=== PATIENT | female | born 1980 | race Caucasian/White ===

== ENCOUNTER 2017-02-15 14:49 | Emergency (ER) | payer MEDICARE, MEDICAID ==
[2017-02-15] MEDS ORDERED: CALCIUM GLUCONATE 1000 MG/10 ML INJ IV ONE ×5 (14:54→16:09)
[2017-02-15] MEDS ORDERED: INSULIN REG, HUMAN 100 UNIT/ML 3 ML VIAL (PYX) IV ONE (15:03)
[2017-02-15] MEDS ORDERED: ALBUTEROL SULFATE 0.083% NEB 2.5 MG/3 ML AMPUL NEB ONE (15:03)
[2017-02-15] MEDS ORDERED: SODIUM BICARBONATE 8.4% INJ 50 MEQ/50 ML DISP.SYRIN IV ONE (15:03)
[2017-02-15 15:13] LABS: VENOUS BLOOD HCO3 18.9 mmol/L (20-32); VENOUS BLOOD PCO2 62.4 mmHg (35-63)
[2017-02-15 15:15] LABS: VENOUS BLOOD PH 7.1 (7.30-7.42)
[2017-02-15 15:17] LABS: PROTHROMBIN TIME 19.1 SEC (11.4-15.4)
[2017-02-15 15:18] LABS: PARTIAL THROMBOPLASTIN TIME 46.8 SEC (23.5-35.8)
--- NOTE | 2017-02-15 15:18 | ER Document Report ---
ED General - General Chief Complaint: Arrhythmia Stated Complaint: HEART RATE CONCERN Time Seen by Provider: 02/15/17 15:01 Notes: The patient is a 36-year-old female, past medical history ESRD ([facility]), MRSA pneumonia, colectomy, gastroparesis, presents by EMS after she was found to be blue and with decreased responsiveness at [facility]. Patient was found to be in a junctional bradycardia with a heart rate of 30 and blood pressure of 70/40. Patient is unable to say when her last dialysis was. TRAVEL OUTSIDE OF THE [place] IN LAST 30 DAYS: No - Related Data Allergies/Adverse Reactions: clindamycin [Clindamycin] Allergy (Severe, Verified 06/04/15 04:18) rash vancomycin [Vancomycin] Allergy (Severe, Verified 06/04/15 04:18) rash, fever, swelling, after 3 weeks of in home IV treatment Cephalosporins Allergy (Intermediate, Verified 06/04/15 04:18) bullous rash sulfamethoxazole [From Bactrim DS] Allergy (Intermediate, Verified 06/04/15 04: 18) Hives trimethoprim [From Bactrim DS] Allergy (Intermediate, Verified 06/04/15 04:18) Hives Past Medical History - General Information source: Patient Cannot obtain history due to: Unstable vital signs - Social History Smoking Status: Unknown if Ever Smoked Family History: CAD, DM, Other - Past Medical History Cardiac Medical History: Reports: Hx Heart Attack - [place] 2014, Hx Hypertension, Hx Peripheral Vascular Disease Denies: Hx Coronary Artery Disease Pulmonary Medical History: Reports: Hx Asthma, Hx Pneumonia Denies: Hx Bronchitis, Hx COPD Neurological Medical History: Reports: Hx Seizures. Denies: Hx Cerebrovascular Accident Endocrine Medical History: Reports: Hx Diabetes Mellitus Type 1, Hx Diabetes Mellitus Type 2 Renal/ Medical History: Reports: Hx End Stage Renal Disease, Hx Hemodialysis - Current, Hx Peritoneal Dialysis - Previous Malignancy Medical History: Denies: Hx Breast Cancer, Hx Cervical Cancer, Hx Lung Cancer, Hx Ovarian Cancer GI Medical History: Reports: Hx Gastroesophageal Reflux Disease. Denies: Hx Crohn's Disease, Hx Hiatal Hernia, Hx Irritable Bowel, Hx Liver Failure, Hx Ulcer Musculoskeltal Medical History: Denies Hx Arthritis, Denies Hx Fibromyalgia, Denies Hx Muscular Dystrophy, Reports Hx Musculoskeletal Deformity Skin Medical History: Reports Hx MRSA Psychiatric Medical History: Denies: Hx Depression Traumatic Medical History: Denies: Hx Fractures Past Surgical History: Reports: Hx Abdominal Surgery - peritoneal dialysis catheter, Hx Section, Hx Gynecologic Surgery - BTL, left ovary removed , D&C, Hx Orthopedic Surgery - Right BKA, Left AKA, Hx Tubal Ligation. Denies: Hx Appendectomy, Hx Bowel Surgery, Hx Cholecystectomy, Hx Colostomy, Hx Coronary Artery Bypass Graft, Hx Gastric Bypass Surgery, Hx Herniorrhaphy, Hx Hysterectomy, Hx Mastectomy, Hx Pacemaker, Hx Tonsillectomy - Immunizations Immunizations up to date: No Hx Diphtheria, Pertussis, Tetanus Vaccination: No Hx Pneumococcal Vaccination: 07/09/11 Review of Systems - Review of Systems -: Yes ROS unobtainable due to patient's medical condition Physical Exam - Vital signs Vitals: Pulse Resp BP Pulse Ox 34 L 14 70/56 L 91 L 02/15/17 15:00 02/15/17 15:00 02/15/17 15:00 02/15/17 15:00 - Notes Notes: PHYSICAL EXAMINATION: GENERAL: Decreased responsiveness. Slow to respond to voice. Ill-appearing. HEAD: Atraumatic, normocephalic. EYES: Pupils equal round and reactive to light, extraocular movements intact, sclera anicteric, conjunctiva are normal. ENT: nares patent, oropharynx clear without exudates. Moist mucous membranes. NECK: Normal range of motion, supple without lymphadenopathy LUNGS: Breath sounds clear to auscultation bilaterally and equal. No wheezes rales or rhonchi. CHEST: Dialysis catheter and central line in place over right upper chest wall. HEART: Bradycardia. ABDOMEN: Soft, Colostomy bag with brown stool. EXTREMITIES: B/L AKA. NEUROLOGICAL: Slow to respond to voice. Awake. No focal neuro deficits. SKIN: Cyanotic. Course - Re-evaluation Re-evalutation: Patient seen immediately on arrival. With history of ESRD, junctional bradycardia leading to hypotension, empiric treatment for height hyperkalemia was provided with increase of her heart rate from HR junctional bradycardia with rate of 30 to sinus rhythm with HR of 66 and improvement of her BP from 70/ 40 to 130/81. Pt began to become hypoxic down to 50% on her non-rebreather mask with worsening mental status. Decision was made to intubate patient. Due to presence of trach scar, multiple difficult airway were set up prior to intubation. Patient is also hypothermic, with a leukocytosis and possible left lower lobe pneumonia. Broad-spectrum antibiotics started through her PICC line and 30 cc/kg provided to patient when she is intubated due to lactate is 6.9 and hypotension. Levophed started through her central line. Pt also with elevated troponin, but no STEMI. Unable to tell if she has chest pain. Suspect this is a component of her septic shock leading to endorgan damage. Heparin started due to slightly decreased INR from her Coumadin level. 02/15/17 16:32 Spoke to her Internal Control Specialist, Dr. Castro, about need for emergent dialysis. Unable to obtain dialysis after 3 PM at [facility] and he is recommending transfer. He is also recommending 45 mg of Kayexalate to help excrete the potassium. 02/15/17 16:50 Spoke to [facility] and awaiting callback from microbiology instructor. 02/15/17 16:[address] Denney (Bear Keeper at [facility]) and he has accepted patient. 02/15/17 20:00 Transport in ED. Pt remains on propofol, heparin and levophed drips. Reassessed patient. - Vital Signs Vital signs: Temp Pulse Resp BP Pulse Ox 94.5 F L 34 L 10 L 105/73 100 02/15/17 15:51 02/15/17 15:00 02/15/17 19:54 02/15/17 19:54 02/15/17 19:54 - Laboratory Result Diagrams: 02/15/17 15:47 02/15/17 14:55 Laboratory results interpreted by me: 02/15/17 02/15/17 02/15/17 14:55 14:55 14:55 WBC Hgb Hct MCH MCHC RDW Seg Neutrophils % Lymphocytes % Absolute Neutrophils PT 19.1 H APTT 46.8 H Carbonic Acid ABG pH ABG pCO2 ABG pO2 ABG HCO3 ABG Total CO2 ABG O2 Saturation VBG pH VBG HCO3 Sodium 135.7 L Potassium 6.9 H* Chloride 95 L Carbon Dioxide 19 L Anion Gap 22 H BUN 51 H Creatinine 3.50 H Est GFR ( Amer) 18 L Est GFR (Non-Af Amer) 15 L Glucose 173 H Lactic Acid Calcium 11.4 H Direct Bilirubin 0.7 H AST 68 H Alkaline Phosphatase 212 H NT-Pro-B Natriuret Pep 36598 H 02/15/17 02/15/17 02/15/17 14:55 14:55 15:47 WBC 12.2 H Hgb 9.6 L Hct 34.6 L MCH 23.5 L MCHC 27.8 L RDW 23.4 H Seg Neutrophils % 82.0 H Lymphocytes % 10.1 L Absolute Neutrophils 10.0 H PT APTT Carbonic Acid ABG pH ABG pCO2 ABG pO2 ABG HCO3 ABG Total CO2 ABG O2 Saturation VBG pH 7.10 L* VBG HCO3 18.9 L Sodium Potassium Chloride Carbon Dioxide Anion Gap BUN Creatinine Est GFR ( Amer) Est GFR (Non-Af Amer) Glucose Lactic Acid 6.9 H Calcium Direct Bilirubin AST Alkaline Phosphatase NT-Pro-B Natriuret Pep 02/15/17 02/15/17 18:45 18:49 WBC Hgb Hct MCH MCHC RDW Seg Neutrophils % Lymphocytes % Absolute Neutrophils PT APTT Carbonic Acid 1.41 H ABG pH 7.19 L* ABG pCO2 46.7 H ABG pO2 61.9 L ABG HCO3 17.5 L ABG Total CO2 19.0 L ABG O2 Saturation 86.0 L VBG pH VBG HCO3 Sodium Potassium Chloride Carbon Dioxide Anion Gap BUN Creatinine Est GFR ( Amer) Est GFR (Non-Af Amer) Glucose Lactic Acid 6.3 H Calcium Direct Bilirubin AST Alkaline Phosphatase NT-Pro-B Natriuret Pep - Diagnostic Test Radiology reviewed: Image reviewed, Reports reviewed Radiology results interpreted by me: CXR: possible left lower lobe pneumonia - EKG Interpretation by Me Rate: Bradycardia Rhythm: Other - Junctional Procedures - Intubation Orotracheal Time of Intubation: 16:30 Airway evaluation: Large tongue, Obese Intubation method: Orotracheal Blade type: Pk Blade size: 4 Equipment used: Glidescope ETT size: 7.5 ETT secured at: Teeth ETT secured at (cm): 24 Breath Sounds after Intubation: Equal End tidal CO2 confirmed: Yes Ventilator settings: SIMV Tidal volume: 450 FiO2: 100 Respirations: 12 PEEP: 10 Post Intubation Xray: Yes Intubation Complications: No complications Critical Care Note - Critical Care Note Total time excluding time spent on procedures (mins): 55 Discharge - Discharge Clinical Impression: Hyperkalemia, Septic shock, Elevated troponin Respiratory failure with hypoxia Qualifiers: Chronicity: acute Qualified Code(s): J96.01 - Acute respiratory failure with hypoxia Pneumonia Qualifiers: Pneumonia type: due to unspecified organism Laterality: left Lung location: lower lobe of lung Qualified Code(s): J18.1 - Lobar pneumonia, unspecified organism Condition: Critical Disposition: [facility] Referrals: ALIYAH MCCLURE MD [Primary Care Provider] - Follow up as needed
--- NOTE | 2017-02-15 15:27 | RADIOLOGY REPORT (SQ) ---
EXAM DESCRIPTION: CHEST SINGLE VIEW COMPLETED DATE/TIME: 02/15/2017 3:16 pm REASON FOR STUDY: SOB COMPARISON: 02/19/2016 EXAM PARAMETERS: NUMBER OF VIEWS: One view. TECHNIQUE: Single frontal radiographic view of the chest acquired. RADIATION DOSE: NA LIMITATIONS: None. FINDINGS: LUNGS AND PLEURA: Low lung volumes. Ill-defined retrocardiac opacification. Small right pleural effusion versus chronic pleural thickening. MEDIASTINUM AND HILAR STRUCTURES: No masses. Contour normal. HEART AND VASCULAR STRUCTURES: Heart size is borderline but accentuated by low lung volumes. BONES: No acute findings. HARDWARE: Dual-lumen catheter in place on the right. OTHER: No other significant finding. IMPRESSION: Cannot exclude left lower lobe pneumonia. Chronic pleural changes in the right base. B orderline heart size as described. TECHNICAL DOCUMENTATION: JOB ID: [id number]
[2017-02-15 15:35] LABS: ALANINE AMINOTRANSFERASE 37 U/L (9-52); ALBUMIN 3.9 g/dL (3.5-5.0); ALKALINE PHOSPHATASE 212 U/L (38-126); ASPARTATE AMINO TRANSFERASE 68 U/L (14-36); BILIRUBIN,DIRECT 0.7 mg/dL (0.0-0.4); BILIRUBIN,TOTAL 0.7 mg/dL (0.2-1.3); BLOOD UREA NITROGEN 51 mg/dL (7-20); CALCIUM 11.4 mg/dL (8.4-10.2); CREATINE KINASE 49 U/L (30-135); GLUCOSE 173 mg/dL (75-110); LIPASE 42.5 U/L (23-300); TOTAL PROTEIN 7.4 g/dL (6.3-8.2)
[2017-02-15] MEDS ORDERED: NORMAL SALINE 1000 ML 1,000 ML IV ONE (15:35)
[2017-02-15] MEDS ORDERED: LINEZOLID 300 ML IV ONE (15:35)
[2017-02-15] MEDS ORDERED: PIPERACILLIN/TAZOBACTAM 3.375 GM VIAL IV ONE (15:36)
[2017-02-15 15:42] LABS: CARBON DIOXIDE 19 mmol/L (22-30); CHLORIDE 95 mmol/L (98-107); SODIUM 135.7 mmol/L (137-145)
[2017-02-15 15:44] LABS: ANION GAP 22 (5-19)
[2017-02-15 15:45] LABS: POTASSIUM 6.9 mmol/L (3.6-5.0)
[2017-02-15 16:03] LABS: ABSOLUTE BASOPHILS # (AUTO) 0.1 10^3/uL (0.0-0.2); ABSOLUTE EOSINOPHILS # (AUTO) 0.1 10^3/uL (0.0-0.6); ABSOLUTE LYMPHOCYTES (AUTO) 1.2 10^3/uL (0.5-4.7); ABSOLUTE MONOCYTES (AUTO) 0.8 10^3/uL (0.1-1.4); BASOPHILS % (AUTO) 0.5 % (0-2); EOSINOPHILS % (AUTO) 0.6 % (0-6); HEMATOCRIT 34.6 % (36.0-47.0); HEMOGLOBIN 9.6 g/dL (12.0-15.5); LYMPHOCYTES % (AUTO) 10.1 % (13-45); MEAN CORPUSCULAR HEMOGLOBIN 23.5 pg (27.0-33.4); MEAN CORPUSCULAR HGB CONC 27.8 g/dL (32.0-36.0); MEAN CORPUSCULAR VOLUME 85 fl (80-97); MONOCYTES % (AUTO) 6.8 % (3-13); RED BLOOD COUNT 4.09 10^6/uL (3.72-5.28); RED CELL DISTRIBUTION WIDTH 23.4 % (11.5-14.0); WHITE BLOOD COUNT 12.2 10^3/uL (4.0-10.5)
[2017-02-15] MEDS ORDERED: NOREPINEPHRINE BITARTRATE INJ/PF 4 MG/4 ML SDV IV ONE (16:03)
[2017-02-15] MEDS ORDERED: ETOMIDATE INJ/PF 20 MG/10 ML SDV IV ONE ×3 (16:04→16:43)
[2017-02-15 16:09] LABS: TROPONIN I 3.74 ng/mL
[2017-02-15 16:19] LABS: HGB HCT DIFFERENCE -5.8
[2017-02-15] MEDS ORDERED: SODIUM POLYSTYRENE SULFONATE 15 GM/60 ML PO ONE (16:30)
[2017-02-15] MEDS ORDERED: NORMAL SALINE 1000 ML 1,000 ML IV PRN (16:41)
[2017-02-15] MEDS ORDERED: DEXTROSE 5%-WATER 250 ML with NOREPINEPHRINE BITARTRATE 4 MG IV PRN ×2 (16:42)
[2017-02-15] MEDS ORDERED: FENTANYL CITRATE INJ/PF 100 MCG/2 ML AMPUL IV ONE (16:43)
--- NOTE | 2017-02-15 16:43 | RADIOLOGY REPORT (SQ) ---
EXAM DESCRIPTION: CHEST SINGLE VIEW COMPLETED DATE/TIME: 02/15/2017 4:34 pm REASON FOR STUDY: ETT PLACEMENT COMPARISON: 02/15/2017 EXAM PARAMETERS: NUMBER OF VIEWS: One view. TECHNIQUE: Single frontal radiographic view of the chest acquired. RADIATION DOSE: NA LIMITATIONS: None. FINDINGS: LUNGS AND PLEURA: Moderate bilateral pleural effusions with associated airspace disease. Upper lungs are clear. No pneumothorax. MEDIASTINUM AND HILAR STRUCTURES: No masses. Contour normal. HEART AND VASCULAR STRUCTURES: Heart stable in size. Normal vasculature. BONES: No acute findings. HARDWARE: Interval placement endotracheal tube terminating 2 cm above the kalyn. Stable position ri ght PermCath. OTHER: No other significant finding. IMPRESSION: INTERVAL PLACEMENT OF ENDOTRACHEAL TUBE TERMINATING APPROXIMATELY 2 CM ABOVE THE KALYN. OTHERWISE STABLE APPEARANCE OF THE CHEST. TECHNICAL DOCUMENTATION: JOB ID: [id number]
[2017-02-15] MEDS ORDERED: HEPARIN SOD (PORCINE) 1,000 UNIT/ML 10 ML VIAL IV ONE (16:45)
--- NOTE | 2017-02-15 18:19 | EKG REPORT ---
SEVERITY:- ABNORMAL ECG - SINUS OR ECTOPIC ATRIAL RHYTHM RIGHT BUNDLE BRANCH BLOCK : Confirmed by: Jas Ace MD 15-Feb-2017 18:18:21
[2017-02-15] MEDS ORDERED: ROCURONIUM BROMIDE INJ 50 MG/5 ML VIAL IV ONE (18:34)
[2017-02-15 19:05] LABS: ARTERIAL BLOOD BASE EXCESS -10.4 mmol/L
[2017-02-15] MEDS ORDERED: PROPOFOL 100 ML IV PRN (19:44)
[2017-02-15 19:57] VITALS: BP 105/73
== END 2017-02-15 20:15 | disposition short-term general hospital (02) ==
LOC: ER 14:49
PROC: 0BH17EZ Insertion of Endotracheal Airway into Trachea, Via Natural or Artificial Opening (ICD-10-PCS; principal; 2017-02-15)
DX: A41.9 Sepsis, unspecified organism (principal); R65.21 Severe sepsis with septic shock; J96.01 Acute respiratory failure with hypoxia; J18.1 Lobar pneumonia, unspecified organism; R74.8 Abnormal levels of other serum enzymes; E87.5 Hyperkalemia; E11.22 Type 2 diabetes mellitus with diabetic chronic kidney disease; I12.0 Hypertensive chronic kidney disease with stage 5 chronic kidney disease or end stage renal disease; N18.6 End stage renal disease; Z99.2 Dependence on renal dialysis; I25.2 Old myocardial infarction; J45.909 Unspecified asthma, uncomplicated; Z86.14 Personal history of Methicillin resistant Staphylococcus aureus infection; Z88.1 Allergy status to other antibiotic agents; Z85.3 Personal history of malignant neoplasm of breast; Z85.43 Personal history of malignant neoplasm of ovary; Z85.41 Personal history of malignant neoplasm of cervix uteri; Z85.118 Personal history of other malignant neoplasm of bronchus and lung; Z89.511 Acquired absence of right leg below knee; Z89.612 Acquired absence of left leg above knee; Z93.3 Colostomy status
CPT/HCPCS: 93005; 96376; 94640; 99291; 96375; 96365; 96367; 36415; 82803 ×2; 82550; 83690; 85025; 85610; 85730; 80053; 84484; 83605; 83880; 71010; 93010; 31500; J0610; J2020; J3010; J2704; J3490 ×2; J7030; A9270; J2543

== ENCOUNTER 2017-03-02 04:59 | Emergency (ER) | payer MEDICARE, MEDICAID ==
[2017-03-02] MEDS ORDERED: LORAZEPAM INJ 2 MG/1 ML VIAL IV ONE ×2 (05:09→06:01)
--- NOTE | 2017-03-02 05:13 | ER Document Report ---
Doctor's Note Notes: 03/02/17 05:12 I performed a quick triage evaluation the patient. Patient is a 36-year-old female who presents with complaint of difficulty breathing. She says she feels very anxious and wants her Xanax. [facility]. She has a very extensive medical history including diabetes requiring bilateral lower extremity amputation, history of a collapsed lung on the left, history of Magaña-Tyler syndrome, history of end-stage renal disease requiring dialysis. Patient says she was at [facility] for approximately a year and then was discharged to the current jail. She was seen here approximately 2 weeks ago and at that time she was severely hypoxic and was found blue facility. She was intubated here and then transferred to [facility] due to respiratory distress and hypoxemia. Patient says that she feels very anxious. Paramedics said that her lung motley were clear upon their arrival. Patient said she started feeling short of breath again today. On exam patient is very anxious. She has very good bilateral breath sounds. She has no rales. She has no wheezing. No rhonchi. Her oxygen saturation is hard to keep a good plaque. When she has a good plethora oxygen saturation is approximately 96% on 4 L. She normally wears 2-3 L at the jail. I will order baseline blood work. I will give her a dose of Ativan. I will order a portable chest x-ray. 03/02/17 05:15 03/02/17 05:17
[2017-03-02] MEDS ORDERED: PROMETHAZINE HCL INJ 25 MG/1 ML VIAL IM ONE (05:24)
[2017-03-02 05:45] LABS: VENOUS BLOOD BASE EXCESS 2.1 mmol/L; VENOUS BLOOD HCO3 26.5 mmol/L (20-32); VENOUS BLOOD PCO2 40.3 mmHg (35-63); VENOUS BLOOD PH 7.44 (7.30-7.42)
--- NOTE | 2017-03-02 05:56 | ER Document Report ---
ED General - General Chief Complaint: Shortness Of Breath Stated Complaint: DIFFICULTY BREATHING Time Seen by Provider: 03/02/17 05:09 Mode of Arrival: Medic Information source: Patient TRAVEL OUTSIDE OF THE [place] IN LAST 30 DAYS: No - HPI Patient complains to provider of: SOB Onset: This morning Onset/Duration: Gradual Associated symptoms: Other - Anxiety Similar symptoms previously: Yes Recently seen / treated by doctor: Yes Notes: Patient initially seen by overnight ED physician to begin workup. I will assume care at 6 AM. - Related Data Allergies/Adverse Reactions: clindamycin [Clindamycin] Allergy (Severe, Verified 03/02/17 05:41) rash vancomycin [Vancomycin] Allergy (Severe, Verified 03/02/17 05:41) rash, fever, swelling, after 3 weeks of in home IV treatment Cephalosporins Allergy (Intermediate, Verified 03/02/17 05:41) bullous rash sulfamethoxazole [From Bactrim DS] Allergy (Intermediate, Verified 03/02/17 05: 41) Hives trimethoprim [From Bactrim DS] Allergy (Intermediate, Verified 03/02/17 05:41) Hives Past Medical History - Social History Smoking Status: Never Smoker Family History: CAD, DM, Other - Past Medical History Cardiac Medical History: Reports: Hx Heart Attack - [place] 2014, Hx Hypertension, Hx Peripheral Vascular Disease Denies: Hx Coronary Artery Disease Pulmonary Medical History: Reports: Hx Asthma, Hx Pneumonia Denies: Hx Bronchitis, Hx COPD Neurological Medical History: Reports: Hx Seizures. Denies: Hx Cerebrovascular Accident Endocrine Medical History: Reports: Hx Diabetes Mellitus Type 1, Hx Diabetes Mellitus Type 2 Renal/ Medical History: Reports: Hx End Stage Renal Disease, Hx Hemodialysis - Current, Hx Peritoneal Dialysis - Previous Malignancy Medical History: Denies: Hx Breast Cancer, Hx Cervical Cancer, Hx Lung Cancer, Hx Ovarian Cancer GI Medical History: Reports: Hx Gastroesophageal Reflux Disease. Denies: Hx Crohn's Disease, Hx Hiatal Hernia, Hx Irritable Bowel, Hx Liver Failure, Hx Pancreatitis, Hx Ulcer Musculoskeltal Medical History: Denies Hx Arthritis, Denies Hx Fibromyalgia, Denies Hx Muscular Dystrophy, Reports Hx Musculoskeletal Deformity Skin Medical History: Reports Hx MRSA Psychiatric Medical History: Denies: Hx Depression Traumatic Medical History: Denies: Hx Fractures Past Surgical History: Reports: Hx Abdominal Surgery - peritoneal dialysis catheter, Hx Section, Hx Gynecologic Surgery - BTL, left ovary removed , D&C, Hx Orthopedic Surgery - Right BKA, Left AKA, Hx Tubal Ligation. Denies: Hx Appendectomy, Hx Bowel Surgery, Hx Cholecystectomy, Hx Colostomy, Hx Coronary Artery Bypass Graft, Hx Gastric Bypass Surgery, Hx Herniorrhaphy, Hx Hysterectomy, Hx Mastectomy, Hx Pacemaker, Hx Tonsillectomy - Immunizations Immunizations up to date: No Hx Diphtheria, Pertussis, Tetanus Vaccination: No Hx Pneumococcal Vaccination: 07/09/11 Physical Exam - Vital signs Vitals: Resp Pulse Ox 12 86 L 03/02/17 05:07 03/02/17 05:07 Course - Re-evaluation Re-evalutation: 03/02/17 06:00 pt is requesting more ativan - sts is doesnt work and she would prefer xanax. Also requesting benadryl because she is itching. 03/02/17 06:18 pt is breathing comfortably. Hyperkalemia noted - it is asymptomatic. She is scheduled for dialysis at 11am. CXR unremarkable. 03/02/17 06:36 Emergency department workup is unremarkable with the exception of a mild hyperkalemia. Patient is otherwise asymptomatic. Chest x-ray is at baseline. Her primary concern was not having Xanax for the last 24 hours because the alf is out of it. Patient will be discharged back to the alf for her scheduled at 11 AM dialysis. - Vital Signs Vital signs: Temp Pulse Resp BP Pulse Ox 32 H 140/117 H 97 03/02/17 06:17 03/02/17 06:17 03/02/17 06:17 - Laboratory Result Diagrams: 03/02/17 05:21 03/02/17 05:21 Laboratory results interpreted by me: 03/02/17 03/02/17 03/02/17 05:21 05:21 05:21 WBC 10.9 H Hgb 10.8 L Hct 34.4 L MCH 25.7 L MCHC 31.3 L RDW 24.3 H Plt Count 504 H Lymphocytes % 10.9 L VBG pH 7.44 H Sodium 135.1 L Potassium 6.7 H* Chloride 94 L BUN 44 H Creatinine 3.03 H Est GFR ( Amer) 21 L Est GFR (Non-Af Amer) 17 L Glucose 139 H Calcium 10.8 H Direct Bilirubin 0.9 H Alkaline Phosphatase 185 H - EKG Interpretation by Me EKG shows normal: Sinus rhythm Rate: Tachycardia - 104 Rhythm: NSR Additional EKG results interpreted by me: 03/02/17 06:18 no evidence of hyperkalemia on EKG Discharge - Discharge Clinical Impression: Hyperkalemia, End-stage renal disease Condition: Good Disposition: SNF-Other Instructions: Kidney Failure ([facility]) Additional Instructions: Follow-up with your scheduled dialysis at 11 AM today. Return to the emergency department if worse or for any other problems. Prescriptions: Alprazolam [Xanax Xr 1 mg Tablet Extended Release] 1 tab PO TID PRN #10 tab.sr PRN Reason: Anxiety Referrals: ALIYAH MCCLURE MD [Primary Care Provider] - Follow up as needed
[2017-03-02 05:59] LABS: ALANINE AMINOTRANSFERASE 27 U/L (9-52); ALKALINE PHOSPHATASE 185 U/L (38-126); ANION GAP 16 (5-19); ASPARTATE AMINO TRANSFERASE 21 U/L (14-36); BILIRUBIN,DIRECT 0.9 mg/dL (0.0-0.4); BILIRUBIN,TOTAL 0.9 mg/dL (0.2-1.3); BLOOD UREA NITROGEN 44 mg/dL (7-20); CALCIUM 10.8 mg/dL (8.4-10.2); CARBON DIOXIDE 25 mmol/L (22-30); CHLORIDE 94 mmol/L (98-107); CREATININE RESULT 3.03 mg/dL (0.52-1.25); GLUCOSE 139 mg/dL (75-110); SODIUM 135.1 mmol/L (137-145); TOTAL PROTEIN 7.6 g/dL (6.3-8.2)
[2017-03-02] MEDS ORDERED: DIPHENHYDRAMINE HCL 50 MG/ML VIAL IV ONE (06:01)
[2017-03-02 06:10] LABS: ABSOLUTE BASOPHILS # (AUTO) 0.1 10^3/uL (0.0-0.2); ABSOLUTE EOSINOPHILS # (AUTO) 0.4 10^3/uL (0.0-0.6); ABSOLUTE LYMPHOCYTES (AUTO) 1.2 10^3/uL (0.5-4.7); ABSOLUTE MONOCYTES (AUTO) 0.9 10^3/uL (0.1-1.4); ABSOLUTE NEUT (AUTO) 8.2 10^3/uL (1.7-8.2); BASOPHILS % (AUTO) 1.3 % (0-2); HEMATOCRIT 34.4 % (36.0-47.0); HEMOGLOBIN 10.8 g/dL (12.0-15.5); LYMPHOCYTES % (AUTO) 10.9 % (13-45); MEAN CORPUSCULAR HEMOGLOBIN 25.7 pg (27.0-33.4); MEAN CORPUSCULAR HGB CONC 31.3 g/dL (32.0-36.0); MEAN CORPUSCULAR VOLUME 82 fl (80-97); MONOCYTES % (AUTO) 8.3 % (3-13); RED BLOOD COUNT 4.19 10^6/uL (3.72-5.28); RED CELL DISTRIBUTION WIDTH 24.3 % (11.5-14.0); SEGMENTED NEUTROPHILS % (AUTO) 75.5 % (42-78); WHITE BLOOD COUNT 10.9 10^3/uL (4.0-10.5)
[2017-03-02 06:11] LABS: POTASSIUM 6.7 mmol/L (3.6-5.0)
[2017-03-02] MEDS ORDERED: SODIUM POLYSTYRENE SULFONATE 15 GM/60 ML PO ONE (06:17)
--- NOTE | 2017-03-02 06:28 | RADIOLOGY REPORT (SQ) ---
EXAM DESCRIPTION: CHEST SINGLE VIEW COMPLETED DATE/TIME: 03/02/2017 5:44 am REASON FOR STUDY: dyspnea COMPARISON: 02/15/2017. EXAM PARAMETERS: NUMBER OF VIEWS: One view. TECHNIQUE: Single frontal radiographic view of the chest acquired. RADIATION DOSE: NA LIMITATIONS: None. FINDINGS: LUNGS AND PLEURA: Moderate opacity -effusion of the right lung base. Small streakiness -e ffusion of the left lung base. Moderate-small lung volumes. MEDIASTINUM AND HILAR STRUCTURES: No masses. Contour normal. HEART AND VASCULAR STRUCTURES: Borderline cardiac silhouette size. BONES: No acute findings. HARDWARE: 2 right internal jugular central lines with small caliber single lumen tip at the cavoatria l junction and multi lumen catheter tip at the level of the right atrium; consider 5 cm retraction of the multi lumen catheter. IMPRESSION: Interval extubation. Otherwise stable. TECHNICAL DOCUMENTATION: JOB ID: [id number]
[2017-03-02 06:29] LABS: ANISOCYTOSIS 3+; HYPOCHROMASIA SLIGHT; POLYCHROMASIA SLIGHT
[2017-03-02 06:30] LABS: OVALOCYTES SLIGHT; TARGET CELLS SLIGHT; TEAR DROP CELLS SLIGHT
[2017-03-02] MEDS ORDERED: ONDANSETRON 4 MG TAB.RAPDIS PO ONE (07:37)
[2017-03-02 07:50] VITALS: BP 149/104
--- NOTE | 2017-03-02 08:09 | EKG REPORT ---
SEVERITY:- ABNORMAL ECG - SINUS TACHYCARDIA PROBABLE LEFT ATRIAL ABNORMALITY LEFT ANTERIOR FASCICULAR BLOCK : Confirmed by: Rip Amor 02-Mar-2017 08:08:56
== END 2017-03-02 07:50 ==
LOC: ER 04:59
DX: E87.5 Hyperkalemia (principal); N18.6 End stage renal disease; R06.02 Shortness of breath; I25.2 Old myocardial infarction
CPT/HCPCS: 93005; 96376; 99285; 96372; 96374; 96375; 36415; 85025; 80053; 82803; 71010; 93010; J1200; A9270; J2060; J2550; S0119

== ENCOUNTER → 2017-03-18 | Outpatient (CLI) | payer MEDICARE, MEDICAID ==
--- NOTE | 2017-03-18 15:04 | ST Modified Barium Swallow ---
Recommendation - Recommendations Recommendations: Recommend thin liquids and regular solids, medications crushed in applesauce or pudding. Safe swallow seen for all trials this day. Medical Diagnoses - Medical Diagnoses Medical Diagnosis Description & ICD-10 Code(s): asphyxia, dysphagia R13.10 Other Medical Diagnoses/Co-Morbidities: Patient reports asthma, reflux, cataract , bilateral lower extremity amputation. PEG in place. ST Modified Barium Swallow - General Date: 03/18/17 Referring Physician: Lincoln Morales MD Risks/Precautions: Falls, Aspiration Reason for Referral: "r/o silent aspiration" - History History obtained from: Patient -: Medical - Patient acted as historian this day, some medical information may be missing or incorrect. On 4 liters of oxygen during study this day. Patient reports being NPO for approximately 1 month following period of intubation and mechanical ventilation. Currently has PEG in place, and has been completing PO trials of puree textures with speech therapist at current facility, [facility]. Reports no difficulty with swallowing trial textures with speech therapist, also reports she recently ate a [employer] taco and2 chalupas with no difficulty. Medications: Patient reports taking protonix, zanax, oxycodone. Reports that she takes other medications, unable to name. Allergies: no food allergies reported, drug allergies in EMR. - Functional Status Prior Functional Status: INDEPENDENT: feeding - independent Current Functional Limitations: feeding - NPO except therapeutic trials. - Subjective Patient/caregiver goal(s): r/o aspiration Cognitive-Linguistic Function: Functional Speech Intelligibility: WNL Current Nutritional Means: NPO Current PO diet: N/A (NPO) Current symptoms: other - no current symptoms, rule out silent aspiration Pain: Patient reports - pain during some positioning for procedure, did not quantify. - Objective Assessment: Upright, Left Lateral - Food Trials Used Food trials used: Thin liquids, Pureed, Regular The patient: Was Able to Self Feed - Oral-Motor Skills Velo-pharyngeal function: Unremarkable Laryngeal Function: Volitional Cough - wfl, Volitional Swallow - wfl - Assessment Oral prep: Normal Labial closure: Adequate Leakage: None Mastication: Adequate Lingual Movement: Normal Oral stage: Normal for this Procedure - Pharyngeal Stage Initiation of Pharyngeal Stage Reflex: Normal Decreased laryngeal elevation: Yes - mild Reduced Velopharyngeal Closure: no Reduced pressure generation: No reduced tongue-based retraction: No Pre-swallow pooling in valleculae: None Pre-Swallow pooling in pyriforms: None Reduced Thyro-Hyoid approximation: Yes - mild Reduced epiglottic excursion: No Reduced pharyngeal peristalsis/contraction: No Post-swallow residulas vallecular: None Post-Swallow residuals in pyriforms: None Post-Swallow Residuals: no residuals Reduced Cricopharyngeal opening: No Pharyngeal Stage Comments: Safe, functional swallow seen for all trial textures this day. - Esophageal Stage Esophageal Stage: Difficulty to observe esophagus during this exam, no gross abnormalities noted in upper esophagus. - Fall Risk Assessment Medications/Conditions that increase fall risks include: Antidepressants, sedatives, anti-arrhythmic, diuretic, benzodiazipenes, neuroleptics. BP regulation problems, cardiac problems, balance or gait deficits, neurological problems. Is patient considered at risk for falls: yes Fall Risk Actions Taken: No action needed - Behavioral Observations During evaluation process patient: was cooperative, provided medical history Mental Status: Alert & Oriented X3 - Treatment / Educational Needs: Treatment/Education Needs: Treatment consisted of patient education on the role of the Speech Pathologist. Patient's plan of care and golas were communicated as well as scheduling and attendance policies. Recommendations for initial home program were shared. Patient demonstrated understanding and verbalized agreement. - Impression/Summary Laryngeal Penetration: Yes, Flash, Cough, during swallow Consistency: Thin Tracheal Aspiration: no Patient presents with: Pharyngeal stage dysph., Mild-Moderate Risk of Aspiration: Mild Evaluation and Findings: Patient seen to have safe swallow for thin liquids and regular solids. Flash penetration seen on thin liquid trial x1, patient seen to cough in response. - Recommendations Solid diet recommendations: Regular Liquid Diet Modification: Thin Strict aspiration precautions: Yes Pt/Family education and followup with MD: Yes Dysphagia therapy with PHYSICIAN INDUSTRIAL: f/u with current thera. Recommended techniques: Fully Upright During Meal, Small Bites and Sips Information, Precautions and Recommendations: Patient (Written), Patient (Verbal ) - Time Total Time: 25 - Plan of Care Patient to follow-up with referring physician: Yes Strategies to optimize patient understanding include:: ongoing assessment of educational needs, implementation of educational strategies, and re-education. - - -: Thank you for the opportunity to work with this patient and his/her family. Should you have any questions about this patient's plan or progress, I can be reached at [phone]. Charge G Code? - - -: Yes [facility] Impairment Category - Rationale Based On Rationale Based On: Func. Asses. Tool Results - Swallowing Current G8996: CI 1-19% Impaired Goal G8997: CI 1-19% Impaired Discharge G8998: CI 1-19% Impaired
--- NOTE | 2017-03-24 12:00 | RADIOLOGY REPORT (SQ) ---
EXAM DESCRIPTION: DARÍO SWALLOW COMPLETED DATE/TIME: 03/18/2017 8:47 am REASON FOR STUDY: ASPHYIA R09.01 ASPHYXIA COMPARISON: None. TECHNIQUE: Videofluoroscopic swallowing examination was performed in conjunction with speech patholo gy. Videofluoroscopic imaging was obtained and reviewed and these are the findings: RADIATION DOSE: Fluoro time 1.51 minutes 1 images saved to PACS. LIMITATIONS: None FINDINGS: The patient was brought into the fluoro room and placed upright on a modified barium swall ow chair. The patient was then given multiple consistencies mixed with barium to swallow under live fluoroscopic video guidance. According to the Speech Pathologist there was penetration seen with thi n barium, without aspiration. . Please refer to the speech pathology report for further details. IMPRESSION: Penetration with thin barium, without aspiration.PLEASE SEE SPEECH PATHOLOGIST REPORT FO R OTHER FINDINGS AND RECOMMENDATIONS. COMMENT: None Quality ID [id number]: Final reports for procedures using fluoroscopy that document radiation exposure carlos aliyah, or exposure time and number of fluorographic images (if radiation exposure indices are not avail able) TECHNICAL DOCUMENTATION: JOB ID: [id number] My 1%- All Rights Reserved
== END ==
LOC: RAD 07:54
PROVIDERS: ATTEND Internal Medicine
DX: R09.01 Asphyxia (principal); R13.10 Dysphagia, unspecified; K21.9 Gastro-esophageal reflux disease without esophagitis; J45.909 Unspecified asthma, uncomplicated
CPT/HCPCS: 74230; 92611; G8996; G8997; G8998

== ENCOUNTER 2017-03-29 16:26 | Emergency (ER) | payer MEDICARE, MEDICAID ==
[2017-03-29] MEDS ORDERED: METOCLOPRAMIDE HCL INJ/PF 10 MG/2 ML SDV IV ONE (17:03)
--- NOTE | 2017-03-29 17:52 | ER Document Report ---
ED General - General Chief Complaint: Altered Mental Status Stated Complaint: ALTERED MENTAL STATUS Time Seen by Provider: 03/29/17 17:03 Notes: The patient is a 36 yo female, past medical history ESRD (MWF), MRSA pneumonia, colectomy, gastroparesis, presents with 3 days of nausea, vomiting and diarrhea. She said that she skipped dialysis 3 days ago, but had her full course of dialysis earlier today. Her dialysis center said that she was altered , but patient is completely oriented and has no focal neuro complaints at this time. She said that she is still feeling nauseous and is requesting IV Phenergan. TRAVEL OUTSIDE OF THE [place] IN LAST 30 DAYS: No - Related Data Allergies/Adverse Reactions: clindamycin [Clindamycin] Allergy (Severe, Verified 03/02/17 05:41) rash vancomycin [Vancomycin] Allergy (Severe, Verified 03/02/17 05:41) rash, fever, swelling, after 3 weeks of in home IV treatment Cephalosporins Allergy (Intermediate, Verified 03/02/17 05:41) bullous rash sulfamethoxazole [From Bactrim DS] Allergy (Intermediate, Verified 03/02/17 05: 41) Hives trimethoprim [From Bactrim DS] Allergy (Intermediate, Verified 03/02/17 05:41) Hives Past Medical History - General Information source: Patient - Social History Smoking Status: Never Smoker Chew tobacco use (# tins/day): No Frequency of alcohol use: None Drug Abuse: None Family History: CAD, DM, Other Patient has suicidal ideation: No Patient has homicidal ideation: No - Past Medical History Cardiac Medical History: Reports: Hx Heart Attack - [place] 2014, Hx Hypertension, Hx Peripheral Vascular Disease Denies: Hx Coronary Artery Disease Pulmonary Medical History: Reports: Hx Asthma, Hx Pneumonia Denies: Hx Bronchitis, Hx COPD Neurological Medical History: Reports: Hx Seizures. Denies: Hx Cerebrovascular Accident Endocrine Medical History: Reports: Hx Diabetes Mellitus Type 1, Hx Diabetes Mellitus Type 2 Renal/ Medical History: Reports: Hx End Stage Renal Disease, Hx Hemodialysis - Current. Denies: Hx Peritoneal Dialysis Malignancy Medical History: Denies: Hx Breast Cancer, Hx Cervical Cancer, Hx Lung Cancer, Hx Ovarian Cancer GI Medical History: Reports: Hx Gastroesophageal Reflux Disease. Denies: Hx Crohn's Disease, Hx Hiatal Hernia, Hx Irritable Bowel, Hx Liver Failure, Hx Pancreatitis, Hx Ulcer Musculoskeltal Medical History: Denies Hx Arthritis, Denies Hx Fibromyalgia, Denies Hx Muscular Dystrophy, Reports Hx Musculoskeletal Deformity Skin Medical History: Reports Hx MRSA Psychiatric Medical History: Denies: Hx Depression Traumatic Medical History: Denies: Hx Fractures Past Surgical History: Reports: Hx Abdominal Surgery - peritoneal dialysis catheter, Hx Section, Hx Gynecologic Surgery - BTL, left ovary removed , D&C, Hx Orthopedic Surgery - Right BKA, Left AKA, Hx Tubal Ligation. Denies: Hx Appendectomy, Hx Bowel Surgery, Hx Cholecystectomy, Hx Colostomy, Hx Coronary Artery Bypass Graft, Hx Gastric Bypass Surgery, Hx Herniorrhaphy, Hx Hysterectomy, Hx Mastectomy, Hx Pacemaker, Hx Tonsillectomy - Immunizations Immunizations up to date: No Hx Diphtheria, Pertussis, Tetanus Vaccination: No Hx Pneumococcal Vaccination: 07/09/11 Review of Systems - Review of Systems Notes: REVIEW OF SYSTEMS: CONSTITUTIONAL: -fevers, -chills EENT: -eye pain, -difficulty swallowing, -nasal congestion CARDIOVASCULAR:-chest pain, -syncope. RESPIRATORY: -cough, -SOB GASTROINTESTINAL: -abdominal pain, +nausea, +vomiting, +diarrhea GENITOURINARY: -dysuria, -hematuria MUSCULOSKELETAL: -back pain, -neck pain SKIN: -rash or skin lesions. HEMATOLOGIC: -easy bruising or bleeding. LYMPHATIC: -swollen, enlarged glands. NEUROLOGICAL: -altered mental status or loss of consciousness, -headache, - neurologic symptoms PSYCHIATRIC: -anxiety, -depression. ALL OTHER SYSTEMS REVIEWED AND NEGATIVE. Physical Exam - Vital signs Vitals: Temp Pulse Resp BP Pulse Ox 98.6 F 85 19 106/71 98 03/29/17 16:49 03/29/17 16:49 03/29/17 16:49 03/29/17 16:49 03/29/17 16:49 - Notes Notes: PHYSICAL EXAMINATION: GENERAL: Well-appearing, well-nourished and in no acute distress. HEAD: Atraumatic, normocephalic. EYES: Pupils equal round and reactive to light, extraocular movements intact, sclera anicteric, conjunctiva are normal. ENT: nares patent, oropharynx clear without exudates. Moist mucous membranes. NECK: Normal range of motion, supple without lymphadenopathy LUNGS: Breath sounds clear to auscultation bilaterally and equal. No wheezes rales or rhonchi. HEART: Regular rate and rhythm without murmurs ABDOMEN: Soft, nontender, normoactive bowel sounds. No guarding, no rebound. No masses appreciated. EXTREMITIES: B/L AKAs. NEUROLOGICAL: Cranial nerves grossly intact. Normal speech, normal gait. Normal sensory and motor exams. PSYCH: Normal mood, normal affect. SKIN: Sacral wound vacs. Course - Re-evaluation Re-evalutation: Patient appears well and she has no abdominal tenderness at this time. She is AAO 3 and has no focal neuro deficits. No signs of meningitis at this time and blood work is unremarkable. After IV Reglan, her nausea and vomiting have resolved and she is drinking fluids. She had a full course of dialysis earlier today. Instructed her to stay hydrated and follow-up with her primary care physician. - Vital Signs Vital signs: Temp Pulse Resp BP Pulse Ox 98.6 F 85 19 106/71 98 03/29/17 16:49 03/29/17 16:49 03/29/17 16:49 03/29/17 16:49 03/29/17 16:49 - Laboratory Result Diagrams: 03/29/17 17:15 03/29/17 17:15 Laboratory results interpreted by me: 03/29/17 17:15 Chloride 96 L Creatinine 2.98 H Est GFR ( Amer) 22 L Est GFR (Non-Af Amer) 18 L Glucose 66 L Calcium 8.0 L Direct Bilirubin 0.9 H Albumin 3.2 L Lipase 15.8 L Discharge - Discharge Clinical Impression: Nausea vomiting and diarrhea Condition: Stable Disposition: HOME, SELF-CARE Additional Instructions: VOMITING: Vomiting (or nausea without vomiting) can be caused by many other different problems. It can mean that something's wrong with the stomach, such as ulcers or inflammation or the intestinal tract, such as appendicitis. But it can also be a symptom of a problem that has nothing to do with the stomach or intestines. Vomiting is common with severe headaches, earaches, tonsillitis, and kidney infections, etc. We see it with pneumonia or heart attacks. Drugs can cause nausea and vomiting. Many abdominal problems cause vomiting; for example, gallstones, kidney stones, pancreatitis, and intestinal obstruction ( blocked bowels). In most cases, curing the vomiting depends on fixing the problem that caused it. For temporary relief, we may use an anti-nausea medicine. For home use, we can prescribe suppositories, chewable pills, pills that dissolve in the mouth, or liquid anti-nausea drugs. If the vomiting seems to be caused by a problem in the stomach, acid-suppressing drugs may be prescribed as well. It's important to avoid dehydration. Sip small amounts of clear liquids ( soft drinks, tea, broth, etc) . Try to take fluids frequently even if you are vomiting to prevent dehydration. Take increasing amounts of fluid and when liquids are being consumed successfully, advance to small amounts of bland food (toast, soups, mashed potatoes, etc.) until you are able to resume a regular diet. Avoid aspirin, tobacco, and alcohol. If the vomiting worsens, if the problem that's making you vomit worsens, or if there's evidence of bleeding in the stomach (such as black, tarry stool, or bloody or black vomit), you should return immediately. Also, return if abdominal pain worsens or becomes localized to one area or you develop high fever. Call your doctor if you aren't improved in 24 hours. DIARRHEA, NON-SPECIFIC: Diarrhea means frequent, watery stools. There are many causes. Any problem that keeps the intestinal tract from absorbing water from the stool can lead to diarrhea. A sudden new diarrhea problem is usually caused by a virus, food sensitivity, toxic bacteria, or drugs. In this case, we expect the problem to go away soon. Testing is done only if you seem seriously ill from the diarrhea. If you have chronic diarrhea, or diarrhea that keeps coming back, we need to find out why. Chronic diarrhea can be due to inflammation of the bowels such as Crohn's disease or ulcerative colitis, food sensitivity such as intolerance to lactose or wheat protein, irritable bowel syndrome, and other problems. If your diarrhea is a significant problem but it's not clear why you have it, we' ll refer you to a specialist for further testing. During an episode of diarrhea, drink small amounts (two to six ounces) of clear liquids (soft drinks, sport drinks, herb teas, broth, etc). Take fluids frequently to prevent dehydration. It's usually not a problem to take mild anti- diarrhea medication such as Kaopectate or Pepto-Bismol. As the diarrhea eases, advance to small amounts of bland food (mashed potato, toast) for 24 hours. Call the physician if blood appears in your vomit or stool, if vomiting lasts longer than 24 hours, if the abdominal pain worsens or becomes localized to one area, if you develop high fever, or if you become lightheaded and weak. VIRAL SYNDROME: The physician has diagnosed a viral infection. Viruses not only cause "colds," but can cause many different symptoms including generalized aching, fever, headache, cough, diarrhea, nausea, vomiting, and fatigue. The treatment, for the most part, is simply relief of symptoms. This means that antibiotics are usually not given. Rest, fluids, pain medications and, occasionally, medication for the specific symptoms that are most bothersome will be prescribed. Use good handwashing to avoid passing the virus to others. Shared toys should be cleaned with disinfectant. Clean the toilets, sinks, and counter surfaces in bathrooms. Launder clothing in hot water. Contact the physician if you develop any new or unusual symptoms such as severe headache, stiff neck, high fever, chest pain, productive cough, or shortness of breath. You should be rechecked if you don't see marked improvement within seven to 10 days. ANTINAUSEA MEDICATION: You have been given a medication to suppress nausea and vomiting. This type of medication can be given as a shot, pill, or suppository. It will usually last for many hours. Pills and shots usually last six to eight hours. For the typical illness, only one or two doses of the medication may be necessary. Mild lightheadedness may occur. This type of medicine can cause drowsiness. Do not drive or operate dangerous machinery while under its influence. Do not mix with alcohol. See your doctor at once if you have muscle spasms or tightness, or uncontrollable motions (particularly of the neck, mouth, or jaw). Persistent vomiting or severe lightheadedness should also be evaluated by the physician. REGLAN (METOCLOPRAMIDE): Reglan has been prescribed. This medicine affects the stomach and intestines. It can be used to treat nausea and vomiting, to prevent reflux of stomach acid up into the esophagus, or to increase the contractions of the stomach and intestines. It is often prescribed for esophagitis, and for paralysis of the stomach in diabetics. Reglan can cause either mild restlessness or drowsiness. You should contact the doctor at once if you become extremely restless, anxious, or cannot sleep, or if you develop uncontrollable motions of the lips, tongue, or jaw. Do not take alcohol with this medicine. Do not drive or operate machinery until you have been taking this medicine long enough to know how it affects you. Call the doctor if you develop abdominal pains, lightheadedness, black stool, or blood in the stool or vomitus. FOLLOW-UP CARE: If you have been referred to a physician for follow-up care, call the physician s office for an appointment as you were instructed or within the next two days. If you experience worsening or a significant change in your symptoms, notify the physician immediately or return to the Emergency Department at any time for re-evaluation. Prescriptions: Ondansetron HCl [Zofran 4 mg Tablet] 1 - 2 tab PO Q4H PRN #10 tablet PRN Reason: Referrals: ALIYAH MCCLURE MD [Primary Care Provider] - Follow up as needed
[2017-03-29 18:00] LABS: ALANINE AMINOTRANSFERASE 26 U/L (9-52); ALBUMIN 3.2 g/dL (3.5-5.0); ALKALINE PHOSPHATASE 121 U/L (38-126); ANION GAP 16 (5-19); ASPARTATE AMINO TRANSFERASE 18 U/L (14-36); BILIRUBIN,DIRECT 0.9 mg/dL (0.0-0.4); BLOOD UREA NITROGEN 15 mg/dL (7-20); CARBON DIOXIDE 28 mmol/L (22-30); CHLORIDE 96 mmol/L (98-107); CREATININE RESULT 2.98 mg/dL (0.52-1.25); GLUCOSE 66 mg/dL (75-110); LIPASE 15.8 U/L (23-300); SODIUM 139.7 mmol/L (137-145); TOTAL PROTEIN 7.3 g/dL (6.3-8.2)
[2017-03-29 18:20] LABS: ABSOLUTE BASOPHILS # (AUTO) 0.1 10^3/uL (0.0-0.2); ABSOLUTE EOSINOPHILS # (AUTO) 0.4 10^3/uL (0.0-0.6); ABSOLUTE LYMPHOCYTES (AUTO) 0.9 10^3/uL (0.5-4.7); ABSOLUTE MONOCYTES (AUTO) 0.7 10^3/uL (0.1-1.4); ABSOLUTE NEUT (AUTO) 5.2 10^3/uL (1.7-8.2); BASOPHILS % (AUTO) 1.2 % (0-2); EOSINOPHILS % (AUTO) 5.7 % (0-6); HEMATOCRIT 37.7 % (36.0-47.0); HEMOGLOBIN 11.3 g/dL (12.0-15.5); HGB HCT DIFFERENCE -3.8; LYMPHOCYTES % (AUTO) 12.7 % (13-45); MEAN CORPUSCULAR HEMOGLOBIN 25.8 pg (27.0-33.4); MEAN CORPUSCULAR HGB CONC 30.1 g/dL (32.0-36.0); MONOCYTES % (AUTO) 10.2 % (3-13); RED BLOOD COUNT 4.39 10^6/uL (3.72-5.28); RED CELL DISTRIBUTION WIDTH 21.9 % (11.5-14.0); SEGMENTED NEUTROPHILS % (AUTO) 70.2 % (42-78); WHITE BLOOD COUNT 7.3 10^3/uL (4.0-10.5)
[2017-03-29 18:25] LABS: MEAN CORPUSCULAR VOLUME 86 fl (80-97)
[2017-03-29 18:36] VITALS: BP 118/83
== END 2017-03-29 18:57 | disposition home or self-care (01) ==
LOC: ER 16:26
DX: R11.2 Nausea with vomiting, unspecified (principal); R19.7 Diarrhea, unspecified; R41.82 Altered mental status, unspecified; E11.22 Type 2 diabetes mellitus with diabetic chronic kidney disease; I12.0 Hypertensive chronic kidney disease with stage 5 chronic kidney disease or end stage renal disease; N18.6 End stage renal disease; Z99.2 Dependence on renal dialysis; Z86.14 Personal history of Methicillin resistant Staphylococcus aureus infection; Z88.3 Allergy status to other anti-infective agents; I25.2 Old myocardial infarction; Z98.51 Tubal ligation status; Z89.511 Acquired absence of right leg below knee; Z89.612 Acquired absence of left leg above knee
CPT/HCPCS: 99285; 96374; 36415; 83690; 85025; 80053; J2765